=== PATIENT | male | born 1965 | race Caucasian/White ===

== ENCOUNTER 2020-08-11 16:10 | Emergency (ER) | payer SELFPAY ==
[~2020-08-11] VITALS: Ht 162.6 cm; Wt 56.8 kg
[~2020-08-11 16:10] MED LIST: CEPHALEXIN500 M1 PO; LORTAB 5/500 501 TAB PO; NO HOME MEDICATIONS
[2020-08-11 16:14] VITALS: TEMP 97.7
[2020-08-11 18:19] VITALS: BP 122/77; PULSE 80
== END 2020-08-11 18:19 | disposition home or self-care (01) ==
LOC: COL.ER 16:10
DX: S22.41XA Multiple fractures of ribs, right side, initial encounter for closed fracture (principal); Z88.0 Allergy status to penicillin; F17.200 Nicotine dependence, unspecified, uncomplicated; Z79.2 Long term (current) use of antibiotics; W22.8XXA Striking against or struck by other objects, initial encounter
CPT/HCPCS: J1885

== ENCOUNTER 2022-02-27 14:37 | Emergency (ER) | payer OTHER ==
[~2022-02-27] VITALS: Ht 162.6 cm; Wt 56.8 kg
[2022-02-27 15:42] VITALS: TEMP 97.7
[2022-02-27 17:15] LABS: BASO # 0.1 K/mm3 (0.0-0.2); BASO % 1.3 % (0.0-2.0); EOS # 0.3 K/mm3 (0.0-0.7); EOS % 3.6 % (0.0-4.0); GRAN # 4.2 K/mm3 (1.4-6.5); GRAN % 60.6 % (42.2-75.2); HEMATOCRIT 38.8 % (42.0-52.0); HEMOGLOBIN 13.4 g/dl (13.5-18.0); LYMPH # 1.9 K/mm3 (1.2-3.4); MEAN CELL VOLUME 92 fl (80.0-100.0); MEAN CORPUSCULAR HEMOGLOBIN 32 pg (27-31); MEAN CORPUSCULAR HGB CONC 35 g/dl (33.0-37.0); MEAN PLATELET VOLUME 10.1 fl (7.4-10.4); MONO # 0.5 K/mm3 (0.1-0.6); MONO % 7.2 % (1.7-9.3); PLATELET COUNT 233 K/mm3 (130-400); RED BLOOD COUNT 4.22 M/mm3 (4.20-5.60)
[2022-02-27] MEDS ORDERED: GLUCOPHAGE500 MG/TAB (17:26)
[2022-02-27 17:36] LABS: ALBUMIN 3.7 gm/dL (3.5-5.0); BILIRUBIN,TOTAL 0.3 mg/dL (0.2-1.2); CALCIUM 9.3 mg/dL (8.4-10.2); CREATININE, serum 0.99 mg/dL (0.72-1.25); POTASSIUM 4.8 mmol/L (3.5-4.5)
[2022-02-27] MEDS ORDERED: PRILOSEC 20MG20 MG PO (20:05)
[2022-02-27 20:14] VITALS: BP 190/142; PULSE 77
[2022-02-27 20:48] LABS: COLLECTION METHOD CLEAN CATCH
[2022-02-27 20:54] LABS: PH 6 (5-8); SQUAMOUS EPITHELIAL 0-2 /hpf (0-10); URINE APPEARANCE Clear (CLEAR/HAZY); URINE BACTERIA None Seen /hpf (NONE SEEN); URINE BILIRUBIN Negative (NEGATIVE); URINE BLOOD Negative (NEGATIVE); URINE COLOR Straw (YELLOW); URINE GLUCOSE 3+ (NEGATIVE); URINE KETONE Negative (NEGATIVE); URINE LEUKOCYTE ESTERASE Negative (NEGATIVE); URINE NITRATE Negative (NEGATIVE); URINE PROTEIN(semi-quant) Negative (NEGATIVE); URINE UROBILINOGEN Negative (NEGATIVE)
== END 2022-02-27 20:14 | disposition home or self-care (01) ==
LOC: COL.ER 14:37
PROVIDERS: Emergency Medicine
DX: K29.70 Gastritis, unspecified, without bleeding (principal); I10 Essential (primary) hypertension; E11.65 Type 2 diabetes mellitus with hyperglycemia; E87.2 Acidosis; F17.210 Nicotine dependence, cigarettes, uncomplicated; Z28.310 Unvaccinated for COVID-19
CPT/HCPCS: J2405; J7030; Q9967

== ENCOUNTER 2023-11-09 13:17 | Emergency (ER) | payer OTHER ==
[~2023-11-09] VITALS: Ht 162.6 cm; Wt 56.8 kg
[~2023-11-09 13:17] MED LIST changes: +GLUCOPHAGE500 MG/TAB; +PRILOSEC 20MG20 MG PO
[2023-11-09] MEDS ORDERED: DOXYCYCLINE 10100 MG PO (15:48)
[2023-11-09] MEDS ORDERED: PREDNISONE50 MG PO (15:48)
[2023-11-09] MEDS ORDERED: Albuterol/Ipratropium 3 MG-0.5 MG/3 ML Neb Soln IH SCH (16:30)
[2023-11-09] MEDS ORDERED: PROAIR HFA0.09 MG/AC IH (16:37)
[2023-11-09 16:48] VITALS: BP 135/73; PULSE 83; TEMP 98.1
[2023-11-09] MEDS ORDERED: Albuterol/Ipratop Respimat **** subs to Albuterol/Ipratrop Nebule IH SCH (17:00)
== END 2023-11-09 16:48 | disposition home or self-care (01) ==
LOC: COL.ER 13:17
DX: J44.1 Chronic obstructive pulmonary disease with (acute) exacerbation (principal); Z88.0 Allergy status to penicillin